=== PATIENT | female | born 2000 | race African-American/Black ===

== ENCOUNTER 2021-07-16 23:05 | Emergency (ER) | payer MEDICAID ==
[~2021-07-16] VITALS: Ht 172.7 cm; Wt 61.4 kg
[2021-07-16] MEDS ORDERED: LORazepam 2 MG/ML VIAL IV STA ×2 (23:14→23:28)
[2021-07-16 23:27] LABS: BASO # 0.1 10^3/uL (0.0-0.2); BASO % 0.3 % (0.0-1.0); EOS % 0.1 % (0.0-3.0); HEMATOCRIT 43.5 % (36.0-47.0); HEMOGLOBIN 14.8 g/dl (12.0-15.5); LYMPH # 2.7 10^3/uL (1.5-5.0); LYMPH % 16.3 % (24.0-44.0); MEAN CORPUSCULAR HEMOGLOBIN 29.7 pg (27.0-33.0); MEAN CORPUSCULAR VOLUME 87.3 fl (80.0-96.0); MONO # 0.6 10^3/uL (0.0-0.8); MONO % 3.3 % (2.0-8.0); NEUTROPHILS # 13.4 10^3/uL (1.5-8.5); NEUTROPHILS % 79.6 % (36.0-66.0); PLATELET COUNT, AUTOMATED 267 10^3/uL (150-450); RED BLOOD COUNT 4.98 10^6/uL (4.00-5.40); WHITE BLOOD COUNT 16.8 10^3/uL (4.0-10.0)
[2021-07-17] MEDS ORDERED: UNRESOLVED CLARIFICATION ENTRY XX SCH (00:01)
[2021-07-17 00:07] LABS: ALBUMIN 4.5 GM/DL (3.2-5.2); ALT/SGPT 28 U/L (12-78); BILIRUBIN,DIRECT 0.3 MG/DL (0.0-0.2); BILIRUBIN,TOTAL 0.7 MG/DL (0.2-1.0); BLOOD UREA NITROGEN 13 MG/DL (7-18); CALCIUM LEVEL 9.8 MG/DL (8.5-10.1); CARBON DIOXIDE LEVEL 24 MEQ/L (21-32); CHLORIDE LEVEL 111 MEQ/L (98-107); CREATININE FOR GFR 0.82 MG/DL (0.55-1.30); ETHYL ALCOHOL (ETHANOL) 0.148 % (0.000-0.010); GLUCOSE, FASTING 94 MG/DL (70-100); POTASSIUM SERUM 4.5 MEQ/L (3.5-5.1); SODIUM LEVEL 147 MEQ/L (136-145); THYROID STIMULATING HORMONE 0.726 uIU/ML (0.463-3.98); TOTAL PROTEIN 8.6 GM/DL (6.4-8.2)
[2021-07-17] MEDS ORDERED: NS 1,000 ML IV ONE ×2 (01:05→07:15)
[2021-07-17] MEDS ORDERED: LORazepam 2 MG/ML VIAL IV STA (06:15)
[2021-07-17] MEDS ORDERED: ONDANSETRON 4MG/2ML VIAL IV ONE (07:00)
[2021-07-17 08:42] LABS: AMPHETAMINES LEVEL URINE NEGATIVE (NEGATIVE); BARBITURATES URINE NEGATIVE (NEGATIVE); BENZODIAZEPINES URINE NEGATIVE (NEGATIVE); CANNABINOIDS URINE POSITIVE (NEGATIVE); COCAINE METABOLITE URINE NEGATIVE (NEGATIVE); METHADONE URINE NEGATIVE (NEGATIVE); OPIATES URINE NEGATIVE (NEGATIVE); PHENCYCLIDINE URINE NEGATIVE (NEGATIVE)
[2021-07-17 08:44] LABS: ACETAMINOPHEN LEVEL < 2.0 UG/ML (10.0-30.0); SALICYLATE LEVEL < 1.7 MG/DL (5.0-30.0)
[2021-07-17] MEDS ORDERED: ONDA4TAB6 PO (09:40)
[2021-07-17 09:46] VITALS: BP 118/70
== END 2021-07-17 09:47 | disposition home or self-care (01) ==
LOC: EDBD 23:05 → M ED 23:05
DX: F10.10 Alcohol abuse, uncomplicated (principal); F43.20 Adjustment disorder, unspecified; Z91.040 Latex allergy status
CPT/HCPCS: 70450; 71045; 80048; 80076; 80143; 80307; 81001; 82077; 82550; 84443; 85025; 87088; 87186; 93005; 93041; 94760; 96361; 96374; 96375; 96376; 99285; J2060; J2405